=== PATIENT | male | born 1960 | race Caucasian/White ===

== ENCOUNTER → 2017-11-24 | Outpatient (CLI) | payer OTHER ==
--- NOTE | 2017-11-24 15:07 | RAD ---
2 views left hip 11/24/2017 2:00 AM Indication: Left hip pain. Comparison: Left hip radiographs October 13, 2015 Findings: No evidence of acute fracture or dislocation is seen. There is significant superolateral joint space narrowing with mild underlying sclerosis. No acute soft tissue changes are seen. Impression: Stable degenerative changes of the left hip without evidence of acute osseous abnormality.
== END | disposition home or self-care (01) ==
LOC: PMG 09:57
PROVIDERS: ATTEND Physician Assistant Medical
DX: M16.12 Unilateral primary osteoarthritis, left hip (principal)
CPT/HCPCS: 73502

== ENCOUNTER → 2018-02-17 | Outpatient (CLI) | payer OTHER | END | disposition home or self-care (01) | LOC: LAB 08:45 | PROVIDERS: ATTEND Internal Medicine Gastroenterology | DX: B18.2 Chronic viral hepatitis C (principal) | CPT/HCPCS: 86706; 86803; 87340 ==

== ENCOUNTER 2019-09-26 01:25 | Emergency (ER) | payer OTHER ==
[~2019-09-26] VITALS: Ht 175.3 cm; Wt 96.8 kg
[2019-09-26] MEDS ORDERED: TRAM50TA PO (01:44)
[2019-09-26] MEDS ORDERED: ACET500T68 PO (01:44)
[2019-09-26] MEDS ORDERED: lipitor (01:45)
[2019-09-26] MEDS ORDERED: ASPI325T8 PO (01:45)
[2019-09-26] MEDS ORDERED: metoprolol (01:45)
[2019-09-26] MEDS ORDERED: hydrochlorothiazide (01:45)
[2019-09-26] MEDS ORDERED: PRED50TA PO (01:58)
--- NOTE | 2019-09-26 01:58 | PHYS DOC ---
Adult General Chief Complaint Chief Complaint: SKIN PROBLEM HPI HPI 59-year-old male presents with rash. The patient has had an expanding rash on the right lateral leg and right trunk for several days. The patient had surgery 12 days ago. His rash started 5 or 6 days after the surgery. The only thing that is different is that the patient had an adhesive gel dressing over the wound in the area of the rash until today. He took half of it off yesterday and the rest today. Patient has a known iodine allergy. He does not know of any other allergies. His rash is intensely pruritic. He denies fever or chills. He has been taking Benadryl and hydrocortisone cream without affect. Review of Systems Review of Systems Constitutional: Denies fever or chills [] Eyes: Denies change in visual acuity, redness, or eye pain [] HENT: Denies nasal congestion or sore throat [] Respiratory: Denies cough or shortness of breath [] Cardiovascular: No additional information not addressed in HPI [] GI: Denies abdominal pain, nausea, vomiting, bloody stools or diarrhea [] : Denies dysuria or hematuria [] Musculoskeletal: Denies back pain or joint pain [] Integument: rash[] Neurologic: Denies headache, focal weakness or sensory changes [] Endocrine: Denies polyuria or polydipsia [] All other systems were reviewed and found to be within normal limits, except as documented in this note. Allergies Allergies Allergies Coded Allergies Type Severity Reaction Last Updated Verified iodine Allergy Intermediate 09/26/19 Yes Physical Exam Physical Exam Constitutional: Well developed, well nourished, no acute distress, non-toxic appearance. [] HENT: Normocephalic, atraumatic, bilateral external ears normal, oropharynx moist, no oral exudates, nose normal. [] Eyes: PERRLA, EOMI, conjunctiva normal, no discharge. [] Neck: Normal range of motion, no tenderness, supple, no stridor. [] Cardiovascular:Heart rate regular rhythm, no murmur [] Lungs & Thorax: Bilateral breath sounds clear to auscultation [] Abdomen: Bowel sounds normal, soft, no tenderness, no masses, no pulsatile masses. [] Skin: Erythematous, vesicular rash on the patient's right lateral thigh right trunk. Not warm to the touch. Appears consistent with allergic reaction.[] Back: No tenderness, no CVA tenderness. [] Extremities: No tenderness, no cyanosis, no clubbing, ROM intact, no edema. [] Neurologic: Alert and oriented X 3, normal motor function, normal sensory function, no focal deficits noted. [] Psychologic: Affect normal, judgement normal, mood normal. [] EKG EKG [] Radiology/Procedures Radiology/Procedures [] Course & Med Decision Making Course & Med Decision Making Pertinent Labs and Imaging studies reviewed. (See chart for details) I believe it is most likely that the patient is allergic to some component of the gel dressing that was over his surgical incision site. He has completely remove this at this time. I will give him 125 of Solu-Medrol IM in the emergency room as well as 20 mg of Pepcid by mouth. I will discharge him with 5 more days of prednisone and directions were [id number] Pepcid and Benadryl. He is stable for discharge at this time. [] Dragon Disclaimer Dragon Disclaimer This electronic medical record was generated, in whole or in part, using a voice recognition dictation system. Departure Departure: Impression: Primary Impression: Allergic reaction to chemical substance Disposition: HOME, SELF-CARE Condition: STABLE Referrals: CECI MARI (PCP) Patient Instructions: Drug Allergy, Enma-en-Rusr Scripts Prednisone (PREDNISONE) 50 Mg Tablet 1 TAB PO DAILY for skin rash, #5 TAB Prov: VIDYA TUCKER DO 09/26/19 Problem Qualifiers Primary Impression: Allergic reaction to chemical substance Encounter type: initial encounter Injury intent: accidental or unintentional Qualified Codes: T65.91XA - Toxic effect of unspecified substance, accidental (unintentional), initial encounter VIDYA TUCKER DO Sep 26, 2019 01:58
[2019-09-26] MEDS ORDERED: methylPREDNISolone SOD SUCC PF 125 MG/2 ML VIAL. IM ONE (02:00)
[2019-09-26] MEDS ORDERED: FAMOTIDINE 20 MG TABLET PO ONE (02:00)
[2019-09-26] MEDS ORDERED: FAMOTIDINE 20 MG TABLET ONE (02:02)
[2019-09-26] MEDS ORDERED: methylPREDNISolone SOD SUCC PF 125 MG/2 ML VIAL. ONE (02:02)
[2019-09-26 02:05] VITALS: BP 141/77
== END 2019-09-26 02:24 | disposition home or self-care (01) ==
LOC: ER 01:25
DX: T65.91XA Toxic effect of unspecified substance, accidental (unintentional), initial encounter (principal); R21 Rash and other nonspecific skin eruption; L29.9 Pruritus, unspecified; Z88.8 Allergy status to other drugs, medicaments and biological substances; Y92.89 Other specified places as the place of occurrence of the external cause
CPT/HCPCS: 96372; 99284; J2930

== ENCOUNTER → 2021-11-07 | Outpatient (CLI) | payer OTHER ==
[~2021-11-07] MED LIST: ACET500T68 PO; ASPI325T8 PO; PRED50TA PO; TRAM50TA PO; hydrochlorothiazide; lipitor; metoprolol
--- NOTE | 2021-11-08 12:04 | RAD ---
CT ABDOMEN+PELVIS WO History: Reason: CALCULUS OF URETER, LEFT FLANK PAIN, H/O KIDNEY STONES / Spl. Instructions: / Histo ry: Technique: Noncontrast examination of the abdomen and pelvis. Coronal and sagittal reconstructions we re performed. Exposure: One or more of the following individualized dose reduction techniques were utilized for thi s examination: 1. Automated exposure control 2. Adjustment of the mA and/or kV according to patient size 3. Use of iterative reconstruction technique. Comparison: May 10, 2016 Findings: Lower chest: No consolidation or pleural effusion. Abdomen and pelvis: Left hepatic lobe cysts, unchanged. The spleen, adrenal glands, pancreas and gall bladder are unremarkable. No biliary ductal dilatation. Right renal pelvis calculus extending to the ureteropelvic junction measures 1.4 cm in length by 1.0 cm anterior posterior by 0.6 cm transverse. Mild right pelvocaliectasis. Right urothelial thickening and periureteral edema. Degraded evaluation of the urinary bladder due to beam artery artifact from h ip arthroplasties. No definite urinary bladder calculus. Small left intrarenal calculi. No left hydro nephrosis. Left inferior renal cyst measures 1.8 x 1.7 cm. Normal appendix. No evidence of bowel obstruction. No pathologic lymphadenopathy. No ascites. Small f at-containing umbilical hernia. Mild atherosclerotic plaque throughout the nonaneurysmal abdominal ao rta and branch vessels. Bones: Bilateral hip arthroplasties. Multilevel lumbar spondylosis. Impression: 1. Right renal pelvis calculus contributing to mild right pelvocaliectasis, urothelial thickening an d periureteral edema. 2. Small nonobstructing left intrarenal calculi. Electronically signed by: Germán Stallings DO (11/08/2021 12:01 PM) [facility]
== END ==
LOC: RAD 15:58
PROVIDERS: ATTEND Urology
DX: N20.2 Calculus of kidney with calculus of ureter (principal); N28.1 Cyst of kidney, acquired; K76.89 Other specified diseases of liver; K42.9 Umbilical hernia without obstruction or gangrene; I70.0 Atherosclerosis of aorta
CPT/HCPCS: 74176